=== PATIENT | female | born 1995 | race Caucasian/White ===

== ENCOUNTER 2023-05-16 10:38 | Emergency (ER) | payer OTHER ==
[~2023-05-16] VITALS: Ht 167.6 cm; Wt 57.6 kg
[2023-05-16 11:50] LABS: CLARITY,URINE SLIGHTLY CLOUDY (Clear); COLOR,URINE YELLOW (Yellow); PH,URINE 7.5 (4.8-8.0)
[2023-05-16 11:51] LABS: URINE HCG NEGATIVE (NEG)
[2023-05-16 11:55] LABS: UA COLLECTION TYPE CLN CATCH MIDSTREAM
[2023-05-16 12:09] LABS: SQUAMOUS EPITHELIAL CELL,UR MANY /LPF (FEW)
[2023-05-16 12:10] LABS: WBC CLUMPS,URINE FEW /HPF (NEGATIVE)
[2023-05-16 12:11] LABS: WBC,URINE 50-100 /HPF (0-4)
[2023-05-16 12:12] LABS: BACTERIA,URINE 3+ /HPF (Neg); RBC,URINE 0-2 /HPF (0-2)
[2023-05-16] MEDS ORDERED: CEFD300C3 PO (12:25)
--- NOTE | 2023-05-16 12:35 | NUR ---
I have reviewed and agree with all interventions, assessments performed and documented by EXTERNAL RELATIONS DIRECTOR
[2023-05-16 12:46] VITALS: BP 109/67; PULSE 87; RESP 16; TEMP 98.1; O2SAT 98
== END 2023-05-16 12:48 | disposition home or self-care (01) ==
LOC: ER 10:40
DX: N39.0 Urinary tract infection, site not specified (principal)
CPT/HCPCS: 81001; 81025; 99283